=== PATIENT | female | born 1990 | race Caucasian/White ===

== ENCOUNTER → 2016-12-09 | Outpatient (CLI) | payer OTHER ==
[~2016-12-09] MED LIST: FERR1TAB23 PO; FLUT0.15 NAE; PRENTAB26 PO; VNTHFA/IN INH
== END | disposition home or self-care (01) ==
LOC: C.PAPS 09:16
PROVIDERS: ATTEND Obstetrics & Gynecology
DX: Z34.83 Encounter for supervision of other normal pregnancy, third trimester (principal)

== ENCOUNTER → 2016-12-09 | Outpatient (CLI) | payer OTHER | END | disposition home or self-care (01) | LOC: C.LAB 15:52 | PROVIDERS: ATTEND Obstetrics & Gynecology | DX: Z34.81 Encounter for supervision of other normal pregnancy, first trimester (principal) ==

== ENCOUNTER → 2016-12-09 | Outpatient (CLI) | payer OTHER ==
[2016-12-15 03:24] LABS: CHLAMYDIA TRACH RNA*** DETECTED (NOT DETECTED); GC (NEIS GONORRHOEAE)RNA** NOT DETECTED (NOT DETECTED)
== END | disposition home or self-care (01) ==
LOC: C.LABSPEC 17:51
PROVIDERS: ATTEND Obstetrics & Gynecology
DX: Z34.81 Encounter for supervision of other normal pregnancy, first trimester (principal)

== ENCOUNTER → 2017-02-15 | Outpatient (CLI) | payer OTHER ==
[2017-02-18 00:58] LABS: CHLAMYDIA TRACH RNA*** NOT DETECTED (NOT DETECTED); GC (NEIS GONORRHOEAE)RNA** NOT DETECTED (NOT DETECTED)
== END | disposition home or self-care (01) ==
LOC: C.LABSPEC 14:49
PROVIDERS: ATTEND Obstetrics & Gynecology
DX: O98.312 Other infections with a predominantly sexual mode of transmission complicating pregnancy, second trimester (principal); A74.9 Chlamydial infection, unspecified; Z3A.00 Weeks of gestation of pregnancy not specified

== ENCOUNTER → 2017-02-26 | Outpatient (CLI) | payer OTHER ==
[2017-02-26 10:05] LABS: BASO % 0.3 %; BASO ABS # 0.02 K/uL (0-0.2); COMPLETE YES; EOS % 4.5 %; HEMATOCRIT 32.7 % (37-47); IG% 0.1 %; LYMPH % 31.7 %; LYMPH ABS # 2.17 K/uL (1.2-3.4); MEAN CELL VOLUME 89.1 fL (80-100); MEAN CORPUSCULAR HEMOGLOBIN 31.1 pg (25-34); MEAN CORPUSCULAR HGB CONC 34.9 g/dl (32-36); MEAN PLATELET VOLUME 10.1 fL (7.4-10.4); MONO % 6.1 %; NEUT % 57.3 %; PLATELET COUNT 254 K/uL (130-400); RED BLOOD COUNT 3.67 M/uL (4.2-5.4); WHITE BLOOD COUNT 6.85 K/uL (4.8-10.8)
[2017-02-26 10:47] LABS: GTGD 50 Grams
== END | disposition home or self-care (01) ==
LOC: C.LAB 08:41
PROVIDERS: ATTEND Obstetrics & Gynecology
DX: Z34.82 Encounter for supervision of other normal pregnancy, second trimester (principal)

== ENCOUNTER 2017-03-13 15:51 | Emergency (ER) | payer OTHER ==
[~2017-03-13] VITALS: Ht 160 cm; Wt 62.5 kg
[~2017-03-13 15:51] MED LIST changes: -FERR1TAB23 PO; -FLUT0.15 NAE; -VNTHFA/IN INH
[2017-03-13 15:59] VITALS: TEMP 36.7; Ht 160 cm; Wt 62.5 kg
[2017-03-13] MEDS ORDERED: VNTHFA/IN INH (16:27)
[2017-03-13] MEDS ORDERED: FLUT0.15 NAE (16:27)
[2017-03-13 16:42] LABS: BASO % 0.3 %; BASO ABS # 0.03 K/uL (0-0.2); COMPLETE YES; EOS % 2.7 %; HEMATOCRIT 31.1 % (37-47); IG% 0.2 %; LYMPH ABS # 2.48 K/uL (1.2-3.4); MEAN CELL VOLUME 91.2 fL (80-100); MEAN CORPUSCULAR HEMOGLOBIN 31.1 pg (25-34); MEAN CORPUSCULAR HGB CONC 34.1 g/dl (32-36); MEAN PLATELET VOLUME 10.2 fL (7.4-10.4); MONO % 7.9 %; NEUT % 61.9 %; PLATELET COUNT 227 K/uL (130-400); RED BLOOD COUNT 3.41 M/uL (4.2-5.4); WHITE BLOOD COUNT 9.19 K/uL (4.8-10.8)
[2017-03-13 16:59] LABS: BUN/CREATININE RATIO 14.5 (10-20); CALCIUM 8.5 mg/dl (8.5-10.1); CREATININE 0.69 mg/dl (0.60-1.20)
[2017-03-13 18:45] VITALS: BP 98/60; PULSE 78; O2SAT 99
--- NOTE | 2017-03-13 18:45 | DIAGNOSTIC IMAGING REPORT ---
LIMITED ULTRASOUND CLINICAL HISTORY: 19 weeks present. Abdominal pain and cramping following injury. Evaluate for abruption. COMPARISON STUDY: No previous studies for comparison. FINDINGS: Transabdominal sonography demonstrates a single viable intrauterine gestation with normal heart rate of 145 bpm. Femur length measures 2.78 cm which corresponds to an estimated gestational age of 18 weeks and 4 days. Please note that a dedicated anatomical survey was not performed. On initial imaging, there was prominence of the myometrium which resolved on subsequent imaging. This represented a contraction. No placental abnormality was identified on this examination. Subjectively, the amniotic fluid index appeared normal. movements were normal. The cervix was not well assessed on this exam. IMPRESSION: 1. Single viable intrauterine gestation with normal heart rate of 145 bpm. 2. No placental abnormality identified. Electronically signed by: Zana Castano M.D. 03/13/2017 6:44 PM Dictated Date/Time: 03/13/2017 6:42 PM
--- NOTE | 2017-03-13 19:33 | EMERGENCY ROOM VISIT NOTE ---
History Report prepared by Oumou: Dylan Moore Under the Supervision of: Dr. Magdaleno Sadler M.D. First contact with patient: 16:08 Chief Complaint: ABDOMINAL PAIN Stated Complaint: 19 WKS PREG,HAVING CRAMPS/HIT ABD Nursing Triage Summary: Patient reports she is 19 weeks and was in a bathroom and the baby changing table flew down and hit her in the abdomen. Patient now having intermittent cramps History of Present Illness The patient is a 26 year old female who presents to the Emergency Room with complaints of intermittent lower abdominal cramping beginning an hour and a half prior to arrival. She states she is 19 weeks . The patient notes she was at work, in which, a folding baby changing table hit her at the top of her abdomen at 2:15 PM. She states she returned to work and developed lower abdominal cramping 30-45 minutes later. The patient notes decreased movement of the baby, but she does state that the movement is intermittent and so this is not unusual. She denies contractions, vaginal bleeding or discharge, fever, vomiting, diarrhea, and urinary symptoms. 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 Review of Systems See HPI for pertinent positives & negatives. A total of 10 systems reviewed and were otherwise negative. Past Medical & Surgical Medical Problems: (1) Depression (2) IV drug use (3) Opioid dependence Family History Cancer Social History Smoking Status: Former Smoker Alcohol Use: occasionally Drug Use: heroin Marital Status: single Housing Status: lives with family Current/Historical Medications Scheduled Multivit/Min/Iron/Fol Ac/Pren ( Vitamin), 1 TAB PO DAILY Scheduled PRN Albuterol Hfa (Ventolin Hfa), 1-2 PUFFS INH Q4H PRN for Shortness of Breath Fluticasone Propionate (Nasal) (Flonase Allergy Relief), 2 SPRAYS KARIN DAILY PRN for ALLERGIC REACTION Allergies Coded Allergies: No Known Allergies (Unverified , 03/13/17) Physical Exam Vital Signs Date Time Temp Pulse Resp B/P Pulse Ox O2 Delivery O2 Flow Rate FiO2 03/13/17 18:45 78 16 98/60 99 Room Air 03/13/17 17:34 78 16 98 Room Air 03/13/17 15:59 36.7 84 20 112/72 95 Room Air Physical Exam Constitutional: Vital signs reviewed. Eyes: Pupils are equal round reactive to light. Conjunctiva are noninjected. ENT: Pharynx is clear without erythema or exudate. Mucous membranes are moist. Neck supple without meningeal signs. Respiratory: Clear to auscultation bilaterally. Breath sounds are equal bilaterally. Cardiovascular: Regular rate and rhythm. No rubs or gallops. GI: Gravid, nontender. Bowel sounds are present. Musculoskeletal: No peripheral edema. Integumentary: No cyanosis. Neurological: The patient is awake and alert. No focal deficits. Psychiatric: Normal affect. Medical Decision & Procedures ER Provider Diagnostic Interpretation: US results as stated below per my review and radiologist interpretation. LIMITED ULTRASOUND CLINICAL HISTORY: 19 weeks present. Abdominal pain and cramping following injury. Evaluate for abruption. COMPARISON STUDY: No previous studies for comparison. FINDINGS: Transabdominal sonography demonstrates a single viable intrauterine gestation with normal heart rate of 145 bpm. Femur length measures 2.78 cm which corresponds to an estimated gestational age of 18 weeks and 4 days. Please note that a dedicated anatomical survey was not performed. On initial imaging, there was prominence of the myometrium which resolved on subsequent imaging. This represented a contraction. No placental abnormality was identified on this examination. Subjectively, the amniotic fluid index appeared normal. movements were normal. The cervix was not well assessed on this exam. IMPRESSION: 1. Single viable intrauterine gestation with normal heart rate of 145 bpm. 2. No placental abnormality identified. Electronically signed by: Zana Castano M.D. 03/13/2017 6:44 PM Laboratory Results 03/13/17 16:28 Red Blood Count 3.41, Mean Corpuscular Volume 91.2, Mean Corpuscular Hemoglobin 31.1, Mean Corpuscular Hemoglobin Concent 34.1, Mean Platelet Volume 10.2, Neutrophils (%) (Auto) 61.9, Lymphocytes (%) (Auto) 27.0, Monocytes (%) (Auto) 7.9, Eosinophils (%) (Auto) 2.7, Basophils (%) (Auto) 0.3, Neutrophils # (Auto) 5.68, Lymphocytes # (Auto) 2.48, Monocytes # (Auto) 0.73, Eosinophils # (Auto) 0.25, Basophils # (Auto) 0.03 03/13/17 16:28 Test 03/13/17 16:28 White Blood Count 9.19 K/uL (4.8-10.8) Red Blood Count 3.41 M/uL (4.2-5.4) Hemoglobin 10.6 g/dL (12.0-16.0) Hematocrit 31.1 % (37-47) Mean Corpuscular Volume 91.2 fL (80-100) Mean Corpuscular Hemoglobin 31.1 pg (25-34) Mean Corpuscular Hemoglobin Concent 34.1 g/dl (32-36) Platelet Count 227 K/uL (130-400) Mean Platelet Volume 10.2 fL (7.4-10.4) Neutrophils (%) (Auto) 61.9 % Lymphocytes (%) (Auto) 27.0 % Monocytes (%) (Auto) 7.9 % Eosinophils (%) (Auto) 2.7 % Basophils (%) (Auto) 0.3 % Neutrophils # (Auto) 5.68 K/uL (1.4-6.5) Lymphocytes # (Auto) 2.48 K/uL (1.2-3.4) Monocytes # (Auto) 0.73 K/uL (0.11-0.59) Eosinophils # (Auto) 0.25 K/uL (0-0.5) Basophils # (Auto) 0.03 K/uL (0-0.2) RDW Standard Deviation 43.4 fL (36.4-46.3) RDW Coefficient of Variation 13.1 % (11.5-14.5) Immature Granulocyte % (Auto) 0.2 % Immature Granulocyte # (Auto) 0.02 K/uL (0.00-0.02) Anion Gap 8.0 mmol/L (3-11) Est Creatinine Clear Calc Drug Dose 103.1 ml/min Estimated GFR () 140.2 Estimated GFR (Non- 121.0 BUN/Creatinine Ratio 14.5 (10-20) Calcium Level 8.5 mg/dl (8.5-10.1) Laboratory results as reviewed by me. ED Course 1610: The patient was evaluated in room C3. A complete history and physical exam was performed. 1840: Reevaluated the patient at this time, and she stated her cramping has decreased and only experiences it occasionally. The patient denies discharge or bleeding, and she otherwise feels well. 1843: I spoke to Dr. Son, Private Practice (Obstetrics/Gynecology) about the patient's case, and he recommended having the patient discharged and to call the office tomorrow morning. 1845: Upon reevaluation, the patient appeared to have improvement of her symptoms. I discussed tonight's findings with her. The patient will call the office tomorrow. She verbalized agreement of the treatment plan. The patient was discharged home. Medical Decision This is a 26-year-old female presents with abdominal pain after a traumatic injury. Differential diagnoses considered include solid organ injury, contusion , hematoma, placental abruption. I did perform a limited focused review of portions of the patient's old chart on the electronic medical record. The patient has had no recent pertinent visits to this hospital. I did evaluate the patient as noted above. The patient was hit in the upper abdomen with a changing table. She does not have any tenderness to the upper abdomen or anywhere on the abdomen. She does state that she has cramping pain in the lower pelvis which started approximately 45 minutes after the injury. She has had no vaginal bleeding or discharge. heart tones were normal here. IV access was established. I did order and review the patient's blood work as noted in the electronic medical record. She is anemic but has a history of anemia. I did order an ultrasound of the pelvis. I did review the images myself as well as the radiology report as described above. There is no evidence of abruption. I did discuss the test results with the patient and her . She does understand that a sonogram is not highly sensitive for abruption. Given that the fetus is not viable monitoring was not indicated. I did discuss the case with Dr. 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 He recommended discharge home and follow up in the office. She will call his office tomorrow for appointment. I did discuss return instructions with the patient and her . She was discharged in good condition. Consults Time Called: 1841 Consulting Physician: Dr. Son, Private Practice (Obstetrics/Gynecology) Returned Call: [address] Son, Private Practice (Obstetrics/Gynecology) about the patient 's case, and he recommended having the patient discharged and to call the office tomorrow morning. Impression Primary Impression: Lower abdominal pain Additional Impressions: Second trimester Abdominal injury Scribe Attestation The scribe's documentation has been prepared under my direct and personally reviewed by me in its entirety. I confirm that the note above accurately reflects all work, treatment, procedures, and medical decision making performed by me. Departure Information Dispostion Home / Self-Care Referrals No Doctor, Assigned (PCP) Forms HOME CARE DOCUMENTATION FORM, IMPORTANT VISIT INFORMATION Patient Instructions My [facility] Additional Instructions You have been examined and treated today on an emergency basis only. This is not a substitute for, or an effort to provide, complete comprehensive medical care. It is impossible to recognize and treat all injuries or illnesses in a single emergency department visit. It is therefore important that you follow up closely with Dr. Son. Call tomorrow morning for an appointment. Return immediately for worsening symptoms or if you develop fever, vomiting, vaginal bleeding or discharge or any other concerning symptoms. Avoid any sexual intercourse or exertion. Problem Qualifiers Additional Impressions: Abdominal injury Encounter type: initial encounter Qualified Codes: S39.91XA - Unspecified injury of abdomen, initial encounter
== END 2017-03-13 19:16 | disposition home or self-care (01) ==
LOC: C.EDC 15:51
DX: O26.92 Pregnancy related conditions, unspecified, second trimester (principal); R10.30 Lower abdominal pain, unspecified; S39.001A Unspecified injury of muscle, fascia and tendon of abdomen, initial encounter; W22.8XXA Striking against or struck by other objects, initial encounter

== ENCOUNTER 2017-05-20 22:09 | Outpatient (CLI) | payer OTHER ==
[~2017-05-20] VITALS: Ht 160 cm; Wt 67.1 kg
[~2017-05-20 22:09] MED LIST changes: +FLUT0.15 NAE; +VNTHFA/IN INH
[2017-05-20] MEDS ORDERED: NIFEdipine 10 MG CAP ONE (23:37)
[2017-05-20] MEDS ORDERED: NURSING VERBAL MED ORDER ONE (23:45)
[2017-05-20] MEDS ORDERED: NIFEdipine 10 MG CAP PO SCH ×2 (23:45)
--- NOTE | 2017-05-21 06:32 | DIAGNOSTIC IMAGING REPORT ---
LIMITED ULTRASOUND CLINICAL HISTORY: . Evaluate cervical length. COMPARISON STUDY: 03/13/2017 FINDINGS: The amniotic fluid index was 10.8 cm. Cervical length was 4.7 cm. A single live intrauterine gestation was visualized. The heart rate is 143. A detailed anatomic study was not performed IMPRESSION: 1. Single live intrauterine , in cephalic presentation. 2. Cervical length of 4.7 cm 3. Amniotic fluid index of 10.8 cm Electronically signed by: Clayton Olvera M.D. 05/21/2017 6:31 AM Dictated Date/Time: 05/21/2017 6:29 AM
--- NOTE | 2017-05-21 14:57 | History and Physical ---
History & Physical Date of Service May 21, 2017. History & Physical Chief complaint abdominal tightening and contractions intrauterine 28 weeks 5 days. Patient is a 26-year-old 4 para 1 she's had 2 first trimester spotting spontaneous AB she is in good general health she is presently on vitamins has been well dated. Her expected date of confinement 08/06/2017 confirmed by first trimester ultrasound. Her obstetrical history is as follows. In 2014 she had a live male 6 lbs. 8 oz. spontaneous vaginal delivery at 40 weeks and 5 days induction. Her present should she has had no problems. She called and stated at 4 PM the day of admission she started having abdominal cramps and contractions and that they had gotten progressively worse. She phoned me about 9:30 PM I told her to come to maternity for evaluation. She was placed on a monitor. No contractions were noted. She was sent for ultrasound which showed normal fluid and a cervical length of over 4 cm. Pelvic examination also should reveal the cervix to be closed past medical history. She has a 2-year-old male in good health. She has no known drug allergies. She has had eye surgery in the past. Social history no smoking. No alcohol intake. Works at home. Family history his mother is 58 in good health. Father 66 in good health. She has 5 Brothers and sisters in good health. Review of systems is negative for any chronic condition such as migraines or recurrent bladder infections. Physical exam revealed a well-developed well-nourished 26-year-old white female. Alert oriented 3 and cooperative. Heart had a regular rhythm. Lungs are clear to auscultation percussion. Abdomen was soft and nontender. Abdomen was consistent with a 29 weeks gestational size . Was no CVA tenderness present. No abdominal tenderness present. Pelvic exam revealed the presenting part to be floating. The cervix was posterior closed and firm. Most the skull examination revealed tenderness. Impressions of this case were into uterine at 28 weeks 5 days. And a possible premature labor.
== END 2017-05-21 00:10 | disposition home or self-care (01) ==
LOC: EEVIPCON 22:09 → C.OPB 22:09 → C.LD 22:09 → C.OPB 05-21 00:10
PROVIDERS: ATTEND Obstetrics & Gynecology
DX: Z34.83 Encounter for supervision of other normal pregnancy, third trimester (principal); Z3A.28 28 weeks gestation of pregnancy

== ENCOUNTER → 2017-07-05 | Outpatient (CLI) | payer OTHER ==
[~2017-07-05] MED LIST changes: +FERR1TAB23 PO
== END | disposition home or self-care (01) ==
LOC: C.LABSPEC 14:38
PROVIDERS: ATTEND Obstetrics & Gynecology
DX: Z34.83 Encounter for supervision of other normal pregnancy, third trimester (principal)

== ENCOUNTER 2017-07-29 18:21 | Inpatient (IN) | payer OTHER ==
[~2017-07-29] VITALS: Ht 160 cm; Wt 75.9 kg
[~2017-07-29 18:21] MED LIST changes: -FERR1TAB23 PO
[2017-07-29] MEDS ORDERED: LACTATED RINGER'S 1000ML 1,000 ML IV PRN (20:14)
[2017-07-29] MEDS ORDERED: LACTATED RINGER'S 1000ML 1,000 ML IV SCH (20:14)
[2017-07-29] MEDS ORDERED: FERR1TAB23 PO (20:19)
[2017-07-29 20:20] VITALS: Ht 160 cm; Wt 75.9 kg
[2017-07-29 20:48] LABS: MEAN CELL VOLUME 94.2 fL (80-100); MEAN CORPUSCULAR HEMOGLOBIN 31.9 pg (25-34); MEAN CORPUSCULAR HGB CONC 33.9 g/dl (32-36); MEAN PLATELET VOLUME 10.5 fL (7.4-10.4); PLATELET COUNT 227 K/uL (130-400); RED BLOOD COUNT 3.82 M/uL (4.2-5.4); WHITE BLOOD COUNT 11.61 K/uL (4.8-10.8)
[2017-07-29] MEDS ORDERED: MISOPROSTOLTAB 50 MCG TAB PO ONE (21:00)
[2017-07-30] MEDS ORDERED: BUTORPHANOL TARTRATE 1 MG/ML VIAL ONE (01:14)
[2017-07-30] MEDS ORDERED: NURSING VERBAL MED ORDER PRN (01:15)
[2017-07-30] MEDS ORDERED: BUTORPHANOL TARTRATE 1 MG/ML VIAL IV PRN (01:30)
[2017-07-30] MEDS ORDERED: BUPIVACAINE 0.25% 30 ML VIAL ONE (02:18)
[2017-07-30] MEDS ORDERED: FENTANYL CITRATE INJ 50 MCG/1 ML 2 ML VIAL ONE (02:19)
[2017-07-30] MEDS ORDERED: EpHEDrine SULFATE INJ 50 MG/ML AMP ONE (02:19)
[2017-07-30] MEDS ORDERED: FENTANYL 2MCG/ML ROPIV 1.25MG/ML 100ML BAG EPI ONE (02:19)
[2017-07-30] MEDS ORDERED: NALOXONE HCL INJ 1 MG in SODIUM CHLORIDE 0.9% 1000ML 1,000 ML IV PRN ×4 (03:14)
[2017-07-30] MEDS ORDERED: LACTATED RINGER'S 1000ML 500 ML IV PRN (03:14)
[2017-07-30] MEDS ORDERED: ONDANSETRON INJ 2 MG/ML 2 ML VIAL IV PRN (03:15)
[2017-07-30] MEDS ORDERED: EpHEDrine SULFATE INJ 50 MG/ML AMP IV PRN (03:15)
[2017-07-30] MEDS ORDERED: NALBUPHINE HCL INJ 10 MG/ML AMP IV PRN (03:15)
[2017-07-30] MEDS ORDERED: PROMETHAZINE HCL INJ 25 MG in SODIUM CHLORIDE 0.9% 50ML 50 ML IV PRN (03:15)
[2017-07-30] MEDS ORDERED: DiphenhydrAMINE HCL 50 MG/ML VIAL IV PRN (03:15)
[2017-07-30] MEDS ORDERED: FENTANYL 2MCG/ML ROPIV 1.25MG/ML 100ML BAG EPI PRN (03:15)
[2017-07-30] MEDS ORDERED: NALOXONE HCL INJ 0.4 MG/1 ML VIAL/CARP IV PRN (03:15)
[2017-07-30] MEDS ORDERED: OXYTOCIN 30 UNITS/500ML NSS IV ONE (03:23)
[2017-07-30] MEDS ORDERED: METHYLERGONOVINE MALEATE 0.2 MG/ML AMP ONE (03:32)
[2017-07-30] MEDS ORDERED: SUPERCREAM 0.870 % 15GM JAR EXT PRN (03:45)
[2017-07-30] MEDS ORDERED: ACETAMINOPHEN 325 MG TAB PO PRN (03:45)
[2017-07-30] MEDS ORDERED: OXYTOCIN 30 UNITS/500ML NSS IV PRN (03:45)
[2017-07-30] MEDS ORDERED: BENZOCAINE 20% AER SPR 82.5 GM CAN EXT PRN (03:45)
[2017-07-30] MEDS ORDERED: OXYCODONE/ACETAMINOPHEN 5-325 TAB PO PRN (03:45)
[2017-07-30] MEDS ORDERED: LANOLIN OINT EXT PRN ×2 (03:45)
[2017-07-30] MEDS ORDERED: ACETAMINOPHEN/CODEINE 300/30MG TAB PO PRN ×2 (03:45)
[2017-07-30] MEDS ORDERED: METHYLERGONOVINE MALEATE 0.2 MG/ML AMP IM ONE (03:45)
[2017-07-30] MEDS ORDERED: HYDROCORTISONE ACETATE 25 MG SUPP PR PRN (03:45)
--- NOTE | 2017-07-30 07:06 | Anesthesia Procedure Note ---
Anesthesia Epidural Removal Nt Date & Time Jul 30, 2017 at 07:05 Vital Signs Pain Intensity: 0.0 Notes Mental Status: alert / awake / arousable, participated in evaluation Nausea / Vomiting: adequately controlled Pain: adequately controlled Airway Patency, RR, SpO2: stable & adequate BP & HR: stable & adequate Hydration State: stable & adequate Neuraxial Anesthesia: was administered, sensory block is resolved Anesthetic Complications: no major complications apparent, pt satisfied with anesthetic care Epidural: removed without complications, with tip intact
[2017-07-30 08:00] VITALS: BP 113/62; PULSE 61; TEMP 36.8
[2017-07-30] MEDS ORDERED: PRENATAL VITAMIN TAB PO SCH ×2 (08:00→20:00)
--- NOTE | 2017-07-30 10:30 | DELIVERY SUMMARY ---
DATE OF OPERATION: 07/30/2017 This is a 30-year-old 4, para 2. She has had 2 spontaneous ABs. Blood type is A positive, rubella immune. Vaginal beta strep negative. Due date 08/06/2017. She was brought in for induction at patient's request. On admission, her cervix was about 1.5 cm posterior, 80% effaced. She was having no contractions, no uterine irritability, so we started induction with 50 mcg of Cytotec. After receiving 50 mcg p.o. Cytotec, the patient went into spontaneous labor. She eventually had several doses of IV Stadol and then an epidural. Soon after the epidural was placed, the membranes ruptured spontaneously. She had a bloody show, was fully dilated, pushed about 2 or 3 times, delivered a live male infant via direct occiput anterior position over an intact perineum. Infant was suctioned through the mouth and the nose. Body was delivered without difficulty. Cord was clamped, cut by the father. Cord blood was collected. With IV Pitocin running, the placenta was removed intact. Hemostasis was good. Inspection of the perineum revealed a small superficial laceration at 5 o'clock in the vaginal opening and this was repaired with running 3-0 chromic. Following this, vag exam revealed no hematoma formation or sponges in the vagina. Uterus contracted nicely with a combination of Methergine and IV Pitocin. I attest to the content of the Intraoperative Record and any orders documented therein. Any exception s are noted below.
[2017-07-30] MEDS: DOCUSATE SODIUM 100 MG CAP PO SCH ×2 (10:35→20:09)
[2017-07-30] MEDS: FERROUS SULFATE 325 MG TAB PO SCH (10:35)
[2017-07-30 12:15] VITALS: BP 119/68; PULSE 66; TEMP 36.5
[2017-07-30 16:00] VITALS: BP 108/66; PULSE 64; TEMP 36.5
[2017-07-30] MEDS: IBUPROFEN 600 MG TAB PO PRN (18:13)
[2017-07-30 20:15] VITALS: BP 106/68; PULSE 71; TEMP 36.4
[2017-07-30 23:40] VITALS: BP 103/62; PULSE 66; TEMP 36.5; O2SAT 98
[2017-07-31 07:35] VITALS: BP 99/67; PULSE 58; TEMP 36.3
[2017-07-31 07:59] LABS: HEMATOCRIT 33.3 % (37-47)
[2017-07-31] MEDS: DOCUSATE SODIUM 100 MG CAP PO SCH (08:41)
[2017-07-31] MEDS: FERROUS SULFATE 325 MG TAB PO SCH (08:41)
--- NOTE | 2017-07-31 08:59 | Progress Note ---
Subjective Jul 31, 2017. Subjective conversation w/ patient Ambulation: ambulating normally Voiding: no voiding problems Passing Gas: Yes Diet Tolerance: Regular Diet Lochia: Small Feeding Type: Breast Feeding Review of Systems Constitutional: + fever Objective Vital Signs Date Time Temp Pulse Resp B/P (MAP) Pulse Ox O2 Delivery O2 Flow Rate FiO2 07/31/17 07:35 36.3 58 18 99/67 (78) Room Air 07/31/17 07:35 Room Air 07/30/17 23:40 36.5 66 16 103/62 (76) 98 Room Air 07/30/17 23:40 Room Air 07/30/17 20:15 36.4 71 18 106/68 (81) Room Air 07/30/17 16:00 Room Air 07/30/17 16:00 36.5 64 18 108/66 (80) Room Air 07/30/17 12:15 Room Air 07/30/17 12:15 36.5 66 20 119/68 (85) Room Air Physical Exam General Appearance: WELL-APPEARING Fundus: Firm, Non-Tender Extremities: no pedal edema, no calf tenderness Laboratory Results Last 24 Hours Test 07/31/17 07:44 Hemoglobin 11.3 g/dL Hematocrit 33.3 % Assessment and Plan Problem List Medical Problems: (1) Abdominal injury Status: Acute (2) First trimester bleeding Status: Acute (3) Foot pain Status: Acute (4) Lower abdominal pain Status: Acute (5) Second trimester Status: Acute Post- Day#: 1 Continue Routine Care: patient requests discharge
[2017-07-31] MEDS ORDERED: DIPHTHERIA/TETANUS/PERTUSSIS 0.5 ML SYR/VIAL IM. ONE (09:00)
--- NOTE | 2017-07-31 09:02 | Discharge Instructions ---
Discharge Instructions Date of Service Jul 31, 2017. Admission Reason for Admission: Induction Discharge Discharge Diagnosis / Problem: induction requested Discharge Goals Goal(s): Routine recovery after delivery Activity Recommendations Activity Limitations: as noted below ACTIVITY RECOMMENDATIONS: * Gradual return to full activity over the next 2-3 weeks. * No lifting - nothing heavier than baby over the next 2-3 weeks. * Do not engage in vigorous exercise, sexual activity or sports until cleared by your physician. * Do not drive or operate any motorized equipment until cleared by your physician. * You may shower/bathe daily. DIET: Resume Previous Diet If Breast-feeding: * Increase caloric intake by 500 calories, eat 3 well balanced meals, 2 high protein snacks a day and drink 6-8 8oz. glasses of fluid per day. BREAST CARE: If you are not breast feeding: * Wear a supportive bra 24 hours a day for one to two weeks. * Avoid stimulating your breasts and nipples as much as possible during the first few weeks after delivery. * When taking a shower, have the warm water hit your back, not breasts. * When your breasts feel full, apply ice packs. Usually three to four times a day helps ease the discomfort. * Take a mild pain medication (Tylenol / Motrin) when you are uncomfortable. If breast feeding: * Use breast milk to lubricate nipples. Lansinoh cream may be used for sore nipples. You do not need to remove cream prior to breast feeding. If using a different brand of cream, check the label for directions regarding removal of cream prior to nursing. * Wear a supportive bra. * If having problems with breasts or breast feeding, call a clinical program consultant or your health care provider. OVER THE COUNTER MEDICATION: * For discomfort or pain, you may use Acetaminophen (Tylenol), Ibuprofen (Advil ), or Naproxen (Aleve) following the package directions. * For constipation you may use Colace following the package directions. SPECIAL CARE INSTRUCTIONS: * Vaginal rest (no tampons, douching, intercourse) until after doctor 's visit. * control as discussed with doctor. * Verbalizes understanding of car seat law as reviewed with patient nursing. * Car Seat hand-out given and reviewed with patient by nursing. * Shaken baby information reviewed with patient by nursing. Call you doctor if: * Temperature greater than or equal to 100.4 degrees F or 38.0 degrees C. Take your temperature twice daily for a week. * Bleeding becomes heavier than the heaviest part of your period - saturating a sanitary pad within an hour. * Passing large clots. * Bleeding has a foul smelling odor. * Signs and symptoms of phlebitis: leg pain, warm, red or swollen area on leg. * "Baby Blues" lasting longer than two weeks. ++ If you have had a and incision has increased pain, redness, swelling, presence of any drainage, or if the incision starts to open up. If you have any questions or concerns, call your health care practitioner at [phone]. FOLLOW-UP VISIT: Please call the office at to schedule a 6 week examination. . Instructions / Follow-Up Instructions / Follow-Up ACTIVITY RECOMMENDATIONS: * Gradual return to full activity over the next 2-3 weeks. * No lifting - nothing heavier than baby over the next 2-3 weeks. * Do not engage in vigorous exercise, sexual activity or sports until cleared by your physician. * Do not drive or operate any motorized equipment until cleared by your physician. * You may shower/bathe daily. DIET: Resume Previous Diet If Breast-feeding: * Increase caloric intake by 500 calories, eat 3 well balanced meals, 2 high protein snacks a day and drink 6-8 8oz. glasses of fluid per day. BREAST CARE: If you are not breast feeding: * Wear a supportive bra 24 hours a day for one to two weeks. * Avoid stimulating your breasts and nipples as much as possible during the first few weeks after delivery. * When taking a shower, have the warm water hit your back, not breasts. * When your breasts feel full, apply ice packs. Usually three to four times a day helps ease the discomfort. * Take a mild pain medication (Tylenol / Motrin) when you are uncomfortable. If breast feeding: * Use breast milk to lubricate nipples. Lansinoh cream may be used for sore nipples. You do not need to remove cream prior to breast feeding. If using a different brand of cream, check the label for directions regarding removal of cream prior to nursing. * Wear a supportive bra. * If having problems with breasts or breast feeding, call a clinical program consultant or your health care provider. OVER THE COUNTER MEDICATION: * For discomfort or pain, you may use Acetaminophen (Tylenol), Ibuprofen (Advil ), or Naproxen (Aleve) following the package directions. * For constipation you may use Colace following the package directions. SPECIAL CARE INSTRUCTIONS: * Vaginal rest (no tampons, douching, intercourse) until after doctor 's visit. * control as discussed with doctor. * Verbalizes understanding of car seat law as reviewed with patient nursing. * Car Seat hand-out given and reviewed with patient by nursing. * Shaken baby information reviewed with patient by nursing. Call you doctor if: * Temperature greater than or equal to 100.4 degrees F or 38.0 degrees C. Take your temperature twice daily for a week. * Bleeding becomes heavier than the heaviest part of your period - saturating a sanitary pad within an hour. * Passing large clots. * Bleeding has a foul smelling odor. * Signs and symptoms of phlebitis: leg pain, warm, red or swollen area on leg. * "Baby Blues" lasting longer than two weeks. ++ If you have had a and incision has increased pain, redness, swelling, presence of any drainage, or if the incision starts to open up. If you have any questions or concerns, call your health care practitioner at [phone]. FOLLOW-UP VISIT: Please call the office at to schedule a 6 week examination. Current Hospital Diet Patient's current hospital diet: Regular Diet Discharge Diet Recommended Diet: Regular Diet Pending Studies Studies pending at discharge: no Medical Emergencies . Who to Call and When: Medical Emergencies: If at any time you feel your situation is an emergency, please call 911 immediately. . Non-Emergent Contact Non-Emergency issues call your: Research Biostatistician Call Non-Emergent contact if: temperature is above 100.5 . . "Provider Documentation" section prepared by Nick Son. . VTE Core Measure Inpt VTE Proph given/why not?: Treatment not indicated
[2017-07-31] MEDS: IBUPROFEN 600 MG TAB PO PRN (09:59)
[2017-07-31 13:00] VITALS: BP_DIAS 67; PULSE 58; TEMP 36.3
[2017-07-31] MEDS ORDERED: BISACODYL 5 MG TABEC PO SCH (20:00)
[2017-08-01] MEDS ORDERED: BISACODYL 10 MG SUPP PR PRN (07:00)
== END 2017-07-31 13:10 | disposition home or self-care (01) | DRG 775 ==
LOC: C.LD 19:35 → C.OBG 07-30 13:38
PROVIDERS: ADMIT Obstetrics & Gynecology; ATTEND Obstetrics & Gynecology
PROC: 0HQ9XZZ Repair Perineum Skin, External Approach (ICD-10-PCS; principal; 2017-07-30)
PROC: 10E0XZZ Delivery of Products of Conception, External Approach (ICD-10-PCS; principal; 2017-07-30)
DX: O70.0 First degree perineal laceration during delivery (principal); Z3A.39 39 weeks gestation of pregnancy; Z37.0 Single live birth; Z87.59 Personal history of other complications of pregnancy, childbirth and the puerperium

== ENCOUNTER → 2017-09-08 | Outpatient (CLI) | payer OTHER ==
[~2017-09-08] MED LIST changes: +FERR1TAB23 PO; -FLUT0.15 NAE
== END | disposition home or self-care (01) ==
LOC: C.PAPS 16:06
PROVIDERS: ATTEND Obstetrics & Gynecology
DX: Z39.2 Encounter for routine postpartum follow-up (principal)

== ENCOUNTER 2019-12-07 04:46 | Inpatient (IN) ==
[2019-12-07] MEDS ORDERED: PENICILLIN G POTASSIUM 6 MU in DEXTROSE 5% 250 ML IV STA (05:02)
[2019-12-07] MEDS ORDERED: PENICILLIN G POTASSIUM 3 MU in DEXTROSE 5% 100 ML IV PRN (05:02)
[2019-12-07] MEDS ORDERED: OXYTOCIN 30 UNITS/500 ML BAG IV PRN ×3 (05:02→13:06)
[2019-12-07] MEDS: LACTATED RINGER'S 1,000 ML IV PRN ×3 (05:15→11:16)
--- NOTE | 2019-12-07 05:22 | Obstetrical Progress Note ---
Date of Service December 07, 2019 Physical Exam Physical Exam: Admit Note 28 F P2 at 40.5 weeks admitted in labor. FHT Cat 1. GBS is positive. Cervix 3/50/-1/vertex/intact by nurse. Will admit and start antibiotics. Results & Data Vital Signs (Past 12 Hours) Vital Signs Temp Pulse Resp BP 12/07/19 05:07 36.8 C 93 H 18 121/76 12/07/19 04:59 93 H 121/76
[2019-12-07 05:51] LABS: Hematocrit (blood only) 34.1 % (37-47); Hemoglobin 11.5 g/dL (12.0-16.0); Mean Corpuscular Hemoglobin 31.7 pg (25-34); Mean Corpuscular Volume 93.9 fL (80-100); Mean Platelet Volume 10.7 fL (7.4-10.4); Platelet Count 202 K/uL (130-400); RDW Coefficient of Variation 12.9 % (11.5-14.5); RDW Standard Deviation 44.2 fL (36.4-46.3); Red Blood Count 3.63 M/uL (4.2-5.4); White Blood Count 11.73 K/uL (4.8-10.8)
[2019-12-07] MEDS ORDERED: fentaNYL citrate 100 MCG/2 ML VIAL ONE (05:53)
[2019-12-07] MEDS ORDERED: BUPIVACAINE 0.25% 30 ML VIAL ONE (05:54)
[2019-12-07] MEDS ORDERED: ePHEDrine sulfate 50 MG/ML AMP ONE (05:54)
[2019-12-07] MEDS ORDERED: fentaNYL 2MCG/ML ROPIV 1.25MG/ML 100 ML BAG EPI ONE (05:54)
[2019-12-07 05:56] LABS: Mean Corpuscular Hgb Conc 33.7 g/dL (32-36)
--- NOTE | 2019-12-07 06:04 | Anesthesiology Consultation ---
Date of Service December 07, 2019 Assessment & Plan (1) Encounter for pre-operative examination: Chart Review Chart Review: Patient NOT seen in Pre Admission Testing and Acceptable Risk for Labor Epidural Consults Requested none ASA ASA2 Proposed Anesthesia Anesthesia Type: Labor Epidural Risk / Benefits Reviewed With: PT / POA / Parent / Guardian, Accepts Plan and Informed Consent Obtained History Height/Weight Height: 5 ft 3 in Weight: 80.286 kg Allergies Allergy/AdvReac Type Severity Reaction Status Date / Time No Known Allergies Allergy Unverified 07/29/17 20:17 Medications Home Medications Medication Instructions Recorded Confirmed Last Taken Multivit/Min/Iron/Fol Ac/Pren 1 tab PO DAILY #0 tab 10/27/16 Unknown ( Vitamin) ALBUTEROL HFA (VENTOLIN HFA) 1 - 2 puff INHALATION Q4H PRN #1 03/13/17 Unknown inhaler FERROUS SULFATE (IRON) PO DAILY #0 07/29/17 Unknown Active Medications Generic Name Dose Route Start Last Admin Trade Name Freq PRN Reason Stop Dose Admin Lactated Ringer's 1,000 mls @ 125 mls/hr 12/07/19 05:02 12/07/19 05:15 Lr IV 12/09/19 05:01 999 mls/hr .Q8H PRN Administration L&D Protocol Protocol NPO Date Last Intake of Fluids: 12/07/19 Time Last Intake of Fluids: 06:02 Date Last Intake of Solids: 12/07/19 Time Last Intake of Solids: 03:30 Exercise / Class Metabolic Activity III < 4 Walking/Shop/Light housework Past Anesthesia History No Hx of Anesthesia Complications History of PONV No Hx of PONV Social History Smoking Status: Former smoker Do You Dip or Chew Tobacco: No Hx Alcohol Use: No Hx Substance Use: No substance use type: does not use Review of Systems Patient denies history of abnormal bleeding or bleeding disorder. Patient denies active use of anticoagulants other than low dose aspirin. Patient denies numbness, tingling or weakness in lower extremities. Negative for chest pain or shortness of breath. Physical Exam Vital Signs Last Vital Signs Temp 36.8 C 12/07/19 05:07 Pulse 93 H 12/07/19 05:07 Resp 18 12/07/19 05:07 BP 121/76 12/07/19 05:07 Constitutional not obese (Gravid uterus) ENMT Mouth: no TMJ abnormality and oral opening not small Thyromental Distance: > or= 3.5 Finger Breadths Mallampati Class: II Mouth / Teeth: 1. Broken 2. Broken Neck normal visual inspection; neck extension not limited Respiratory normal respiratory effort, lungs clear to auscultation normal respiratory effort Auscultation: lungs clear to auscultation bilaterally Cardiovascular Rate/Rhythm: regular rate and regular rhythm Heart Sounds: no murmur Neurologic moves all extremities Motor/Sensory: no sensory deficit Psychiatric Orientation: alert and oriented x 3 Testing Laboratory Results 12/07/19 05:38
[2019-12-07] MEDS ORDERED: NALOXONE HCL 0.4 MG/1 ML VIAL/CARP IV PRN (06:39)
[2019-12-07] MEDS ORDERED: ePHEDrine sulfate 50 MG/ML AMP IV PRN (06:39)
[2019-12-07] MEDS ORDERED: fentaNYL 2MCG/ML ROPIV 1.25MG/ML 100 ML BAG EPI PRN (06:39)
[2019-12-07] MEDS ORDERED: DiphenhydrAMINE HCL 50 MG/ML VIAL IV PRN (06:39)
[2019-12-07] MEDS ORDERED: NALOXONE HCL 1 MG in SODIUM CHLORIDE 0.9% 1000ML 1,000 ML IV PRN (06:39)
[2019-12-07] MEDS ORDERED: NALBUPHINE HCL INJ 10 MG/ML AMP IV PRN (06:39)
[2019-12-07] MEDS ORDERED: ONDANSETRON INJ 2 MG/ML 2 ML VIAL IV PRN (06:39)
--- NOTE | 2019-12-07 09:54 | History & Physical Report ---
Date of Service December 07, 2019 Assessment & Plan (1) Uterine contractions at greater than 20 weeks of gestation: AP: 28 yo at 40.4 wks in active labor, receiving 2nd dose of PNC now plan to augment ctx with low dose pitocin and anticipate All questions were answered (2) GBS (group B Streptococcus carrier), +RV culture, currently : History of Present Illness Primary Care Provider: NO PCP Patient is a 28 yo at 40.4 wks who is admitted in labor by Dr Alvares this morning, received Epidural for pain Comfortable now Reviewed her records from office and PMH with her h/o opioid use in the past, denies use during this denies smoking/ alcohol use h/o chlamydia 2 years ago, treated and negative during this , same partner denies h/o HSV GBS+ VSS Afebrile VE; bladder in front of cervix, drained 1000 m urine then rechecked her cervix, 5/ 70%/ -4, vertex, confirmed with bedside US FHR categ I, occasional decels with quick spontaneous recovery [place]; not monitoring ctxs, 2-5 min per her nurse Allergies Allergy/AdvReac Type Severity Reaction Status Date / Time No Known Allergies Allergy Unverified 07/29/17 20:17 Home Medications Home Medications Medication Instructions Recorded Confirmed Type ALBUTEROL HFA (VENTOLIN HFA) 1 - 2 puff INHALATION Q4H PRN #1 03/13/17 12/07/19 History inhaler vit-iron fum-folic ac 1 tab PO DAILY 12/07/19 12/07/19 History [ Vitamin] Patient History Social History Preferred Language: [place] Communication Ability: Effective Multicultural Services Librarian Required: No Beliefs That Will Affect Care: None marital status: Current Living Situation: Family Current Living Situation Comment: Pt lives with and 2 sons Other Information That Helps Us Care for You: No Feels Safe at Home: Yes Safety Concerns: Feels Safe At This Time Smoking Status: Former smoker Do You Dip or Chew Tobacco: No ; Second Hand Exposure: No ; Hx Alcohol Use: No Hx Substance Use: No OB History 2 FT, 's 2 and 4 yo sons Review of Systems All systems reviewed & are unremarkable except as noted in HPI & below Physical Exam Constitutional: WD/WN, vitals as above well developed and well nourished comfortable Results & Data Vital Signs (Past 12 Hours) Vital Signs Temp Pulse Resp BP Pulse Ox 12/07/19 09:48 63 100 12/07/19 09:43 71 100 12/07/19 09:38 79 100 12/07/19 09:37 76 122/74 12/07/19 09:33 67 100 12/07/19 09:28 63 100 12/07/19 09:23 72 100 12/07/19 09:22 59 L 114/65 12/07/19 09:18 67 100 12/07/19 09:13 61 100 12/07/19 09:08 60 113/68 100 12/07/19 09:02 74 100 12/07/19 08:57 62 100 12/07/19 08:52 59 L 100 12/07/19 08:47 64 100 12/07/19 08:42 70 100 12/07/19 08:38 64 108/54 L 12/07/19 08:37 64 91 12/07/19 08:32 66 97 12/07/19 08:27 65 98 12/07/19 08:23 62 114/63 12/07/19 08:22 61 98 12/07/19 08:17 63 99 12/07/19 08:12 64 99 12/07/19 08:09 71 113/58 L 12/07/19 08:07 73 98 12/07/19 08:02 66 99 12/07/19 07:57 75 98 12/07/19 07:53 68 116/56 L 12/07/19 07:52 80 100 12/07/19 07:47 72 100 12/07/19 07:42 79 100 12/07/19 07:38 71 111/59 L 12/07/19 07:37 83 100 12/07/19 07:32 69 100 12/07/19 07:27 90 100 12/07/19 07:22 69 100 12/07/19 07:21 77 115/59 L 12/07/19 07:19 75 117/58 L 12/07/19 07:17 75 126/66 100 12/07/19 07:15 80 123/65 12/07/19 07:13 75 126/69 12/07/19 07:12 77 100 12/07/19 07:11 80 122/70 12/07/19 07:09 73 121/67 12/07/19 07:07 82 122/67 100 12/07/19 07:05 85 127/69 12/07/19 07:03 81 125/76 12/07/19 07:02 84 100 12/07/19 07:01 80 120/75 12/07/19 06:59 72 122/76 12/07/19 06:57 80 125/75 100 12/07/19 06:55 77 130/71 12/07/19 06:53 79 118/64 12/07/19 06:52 76 100 12/07/19 06:51 77 116/62 12/07/19 06:49 80 118/66 12/07/19 06:47 77 120/59 L 100 12/07/19 06:45 80 123/60 12/07/19 06:43 79 115/56 L 12/07/19 06:42 80 100 12/07/19 06:41 75 118/59 L 12/07/19 06:39 74 117/65 12/07/19 06:37 83 117/56 L 100 12/07/19 06:35 86 117/57 L 12/07/19 06:33 77 103/54 L 12/07/19 06:32 84 100 12/07/19 06:31 84 109/59 L 12/07/19 06:29 82 138/57 L 92 12/07/19 06:27 82 152/65 H 100 12/07/19 06:25 77 131/73 12/07/19 06:23 84 128/71 12/07/19 06:22 77 126/69 100 12/07/19 06:19 82 130/71 12/07/19 06:17 76 95 12/07/19 06:16 82 93 12/07/19 06:12 84 100 12/07/19 06:08 80 129/76 12/07/19 06:07 74 100 12/07/19 06:05 77 100 12/07/19 06:00 79 100 12/07/19 05:07 36.8 C 93 H 18 121/76 12/07/19 04:59 93 H 121/76
--- NOTE | 2019-12-07 11:27 | Obstetrical Progress Note ---
Date of Service December 07, 2019 Subjective Patient is reevaluated FHR had deceleration to 60's and she was put on knee chest position, started IVF bolus and O2 mask by her nurse, VE at knee chest with bulging bag, FHR increased to 100's with VE Patient was turned to her back, AROM'ed clear fluid, 8-9 cm/ 70%/ -1 to 0 station then FHR increased to 140's, no more decels Will continue to monitor closely Results & Data Vital Signs (Past 12 Hours) Vital Signs Temp Pulse Resp BP Pulse Ox 12/07/19 11:18 74 100 12/07/19 11:14 80 118/58 L 12/07/19 11:13 84 100 12/07/19 11:08 88 100 12/07/19 11:03 102 H 100 12/07/19 10:58 74 100 12/07/19 10:53 64 110/55 L 99 12/07/19 10:48 64 100 12/07/19 10:43 63 100 12/07/19 10:38 68 100 12/07/19 10:37 65 125/66 12/07/19 10:33 66 100 12/07/19 10:28 65 100 12/07/19 10:23 70 122/61 100 12/07/19 10:18 65 100 12/07/19 10:13 65 100 12/07/19 10:09 63 119/56 L 12/07/19 10:08 63 100 12/07/19 10:03 70 100 12/07/19 09:58 61 100 12/07/19 09:54 61 130/63 12/07/19 09:53 69 100 12/07/19 09:48 63 100 12/07/19 09:43 71 100 12/07/19 09:38 79 100 12/07/19 09:37 76 122/74 12/07/19 09:33 67 100 12/07/19 09:28 63 100 12/07/19 09:23 72 100 12/07/19 09:22 59 L 114/65 12/07/19 09:18 67 100 12/07/19 09:13 61 100 12/07/19 09:08 60 113/68 100 12/07/19 09:02 74 100 12/07/19 08:57 62 100 12/07/19 08:52 59 L 100 01/24/20 08:47 64 100 12/07/19 08:42 70 100 12/07/19 08:38 64 108/54 L 12/07/19 08:37 64 91 12/07/19 08:32 66 97 12/07/19 08:27 65 98 12/07/19 08:23 62 114/63 12/07/19 08:22 61 98 12/07/19 08:17 63 99 12/07/19 08:12 64 99 12/07/19 08:09 71 113/58 L 12/07/19 08:07 73 98 12/07/19 08:02 66 99 12/07/19 07:57 75 98 12/07/19 07:53 68 116/56 L 12/07/19 07:52 80 100 12/07/19 07:47 72 100 12/07/19 07:42 79 100 12/07/19 07:38 71 111/59 L 12/07/19 07:37 83 100 12/07/19 07:32 69 100 12/07/19 07:27 90 100 12/07/19 07:22 69 100 12/07/19 07:21 77 115/59 L 12/07/19 07:19 75 117/58 L 12/07/19 07:17 75 126/66 100 12/07/19 07:15 80 123/65 12/07/19 07:13 75 126/69 12/07/19 07:12 77 100 12/07/19 07:11 80 122/70 12/07/19 07:09 73 121/67 12/07/19 07:07 82 122/67 100 12/07/19 07:05 85 127/69 12/07/19 07:03 81 125/76 12/07/19 07:02 84 100 12/07/19 07:01 80 120/75 12/07/19 06:59 72 122/76 12/07/19 06:57 80 125/75 100 12/07/19 06:55 77 130/71 12/07/19 06:53 79 118/64 12/07/19 06:52 76 100 12/07/19 06:51 77 116/62 12/07/19 06:49 80 118/66 12/07/19 06:47 77 120/59 L 100 12/07/19 06:45 80 123/60 12/07/19 06:43 79 115/56 L 12/07/19 06:42 80 100 12/07/19 06:41 75 118/59 L 12/07/19 06:39 74 117/65 12/07/19 06:37 83 117/56 L 100 12/07/19 06:35 86 117/57 L 12/07/19 06:33 77 103/54 L 12/07/19 06:32 84 100 12/07/19 06:31 84 109/59 L 12/07/19 06:29 82 138/57 L 92 12/07/19 06:27 82 152/65 H 100 12/07/19 06:25 77 131/73 12/07/19 06:23 84 128/71 12/07/19 06:22 77 126/69 100 12/07/19 06:19 82 130/71 12/07/19 06:17 76 95 12/07/19 06:16 82 93 12/07/19 06:12 84 100 12/07/19 06:08 80 129/76 12/07/19 06:07 74 100 12/07/19 06:05 77 100 12/07/19 06:00 79 100 12/07/19 05:07 36.8 C 93 H 18 121/76 12/07/19 04:59 93 H 121/76
[2019-12-07] MEDS ORDERED: ACETAMINOPHEN 325 MG TAB PO PRN (13:06)
[2019-12-07] MEDS ORDERED: HYDROCORTISONE ACETATE 25 MG SUPP PR PRN (13:06)
[2019-12-07] MEDS ORDERED: BENZOCAINE 20% AER SPR 82.5 GM CAN EXT PRN (13:06)
[2019-12-07] MEDS ORDERED: MEASLES, MUMPS & RUBELLA VIRUS VIAL SQ ONE (13:06)
[2019-12-07] MEDS ORDERED: bisacodyL 10 MG SUPP PR PRN (13:06)
[2019-12-07] MEDS ORDERED: SUPERCREAM 0.870% 15 GM JAR EXT PRN (13:06)
[2019-12-07] MEDS ORDERED: DIPHTHERIA/TETANUS/PERTUSSIS 0.5 ML SYR/VIAL IM ONE (13:06)
[2019-12-07] MEDS ORDERED: METHYLERGONOVINE MALEATE 0.2 MG/ML AMP IM ONE (13:06)
--- NOTE | 2019-12-07 13:17 | Anesthesia Procedure Note ---
Date of Service December 07, 2019 Anesthesia Post Epidural Note Vital Signs Vital Signs: Temp Pulse Resp BP Pulse Ox 36.8 C 81 18 121/59 L 100 12/07/19 05:07 12/07/19 13:02 12/07/19 05:07 12/07/19 13:02 12/07/19 12:43 Pain Intensity Lower Abdomen: Pain Intensity: 2 Notes Mental Status: alert / awake / arousable and participated in evaluation Nausea / Vomiting: adequately controlled Pain: adequately controlled Airway Patency, RR, SpO2: stable & adequate BP & HR: stable & adequate Hydration State: stable & adequate Neuraxial Anesthesia: was administered and sensory block is resolving Anesthetic Complications: no major complications apparent and Pt Satisfied with anesthetic care Epidural: Removed without complications and With tip intact
--- NOTE | 2019-12-07 13:36 | Delivery Summary ---
DATE OF OPERATION: 12/07/2019 DATE OF DELIVERY: 12/07/2019. TIME OF DELIVERY OF BABY: 12:47 p.m. TIME OF DELIVERY OF PLACENTA: 12:50 p.m. DETAILS OF DELIVERY: The patient was found to be fully dilated and desired to push. She pushed for about 20 minutes and delivered the head without difficulty. Shoulders were delivered with minimal traction. There was a nuchal cord around the neck x1 which was reduced and baby was handed off to the mother where mouth and nose were suctioned. Cord was clamped x2 and cut at 1 minute delay and it was 3 vessels cord. Cord blood was obtained. Vagina and perineum were checked for lacerations. There was a small first-degree laceration in the posterior vagina close to the hymen at 5 o'clock position. It was repaired with 2-0 Vicryl with [id number] stitches x2. Excellent hemostasis was achieved. Rest of the vagina and perineum were intact and then placenta was found to be in the vagina, delivered spontaneous as intact and complete. Uterus was exteriorized, cleared of all clots and debris. EBL was 100ml. Fundus was firm. Mom and baby tolerated the procedure well. Sponge, lap, needle count was correct x2. Baby was a viable male , Apgars 7 over 8, and weight is 3367 gr. No complications happened and I was present during whole procedure. I attest to the content of the Intraoperative Record and any orders documented therein. Any exceptions are noted below. [facility]
[2019-12-07] MEDS: DOCUSATE SODIUM 100 MG CAP PO SCH (20:25)
[2019-12-07] MEDS: IBUPROFEN 600 MG TAB PO PRN (22:50)
[2019-12-08 07:16] LABS: Hematocrit (blood only) 32.8 % (37-47); Hemoglobin 11.1 g/dL (12.0-16.0); Mean Corpuscular Hemoglobin 31.5 pg (25-34); Mean Corpuscular Hgb Conc 33.8 g/dL (32-36); Mean Corpuscular Volume 93.2 fL (80-100); Mean Platelet Volume 10.6 fL (7.4-10.4); Platelet Count 197 K/uL (130-400); RDW Standard Deviation 44.2 fL (36.4-46.3); Red Blood Count 3.52 M/uL (4.2-5.4); White Blood Count 12.07 K/uL (4.8-10.8)
[2019-12-08] MEDS: IBUPROFEN 600 MG TAB PO PRN ×3 (07:40→20:07)
[2019-12-08] MEDS: DOCUSATE SODIUM 100 MG CAP PO SCH ×2 (07:40→20:06)
[2019-12-08] MEDS ORDERED: PRENATAL VITAMIN 1 TAB PO SCH (08:00)
[2019-12-08] MEDS ORDERED: FERROUS SULFATE 325 MG TAB PO SCH (08:00)
--- NOTE | 2019-12-08 10:59 | Obstetrical Progress Note ---
Date of Service December 08, 2019 Assessment & Plan (1) normal course: PPD #1 pt doing well No complaints anticipate disch tomorrow Subjective Ambulation: ambulating normally Voiding: no voiding problems Passing Gas:: Yes Diet Tolerance:: regular diet Lochia:: Small Feeding Type:: breast feeding Review of Systems All systems reviewed & are unremarkable except as noted in HPI & below Physical Exam Constitutional WD/WN, vitals as above well developed and well nourished Eyes PERRL, conjunctivae normal, anicteric sclerae Neck trachea midline, no thyromegaly Respiratory normal respiratory effort, lungs clear to auscultation Auscultation: no crackles, no rales and no wheezes Cardiovascular RRR, no murmur, no edema Gastrointestinal (Abdomen) normal bowel sounds, soft, nontender, no hepatosplenomegaly Uterus is below umbilicus Musculoskeletal no cyanosis or clubbing, extremities motor strength 5/5 Skin no rashes, warm and dry Neurologic patellar DTR's 2+ bilat, sensation intact Psychiatric A+Ox3, euthymic affect Genitourinary normal external appearance Results & Data Vital Signs (Past 12 Hours) Vital Signs Temp Pulse Resp BP 12/08/19 07:40 36.4 C L 64 18 102/66 12/08/19 04:00 36.5 C 65 18 106/70 12/07/19 23:45 36.6 C 62 18 109/69
[2019-12-08] MEDS ORDERED: bisacodyL 5 MG TABEC PO SCH (20:00)
== END 2019-12-08 21:30 | disposition home or self-care (01) | DRG 807 ==
LOC: OPB 04:46 → EDSTATUS 04:46 → 4S1 04:47 → 4S2 15:59